=== PATIENT | male | born 1960 | race Caucasian/White ===

== ENCOUNTER → 2017-09-14 | Day surgery (SDC) | payer OTHER ==
[2017-09-01 07:36] VITALS: Ht 170.2 cm; Wt 75.9 kg
[~2017-09-14] VITALS: Ht 170.2 cm; Wt 75.9 kg
[~2017-09-14] MED LIST: ACETAMINOPHEN 650 MG SUPP PR PRN; ASPCH81X PO; ATOR-24 PO; ATROPINE SULFATE 0.1 MG/ML 5ML SYR IV PRN; BUPIVACAINE/EPINEPHRINE 0.5% MPF 1:200,000 30 ML VIAL ONE; CEFAZOLIN 2000MG IV PUSH 15 ML IV SCH; COEN100C7 PO; DEXAMETHASONE SOD INJ 4 MG/ML VIAL ONE; EpHEDrine SULFATE 50MG/5ML SYR ONE; EpHEDrine SULFATE INJ 50 MG/ML AMP IV PRN; FENTANYL CITRATE INJ 50 MCG/1 ML 2 ML VIAL ONE; HYDROCODONE/ACETAMIN 5/325MG TAB PO PRN; HYDROmorphone INJ 0.5 MG/0.5 ML SYR IV PRN; LACTATED RINGER'S 1000ML 1,000 ML IV SCH; LIDOCAINE HCL 2% 2 ML VIAL (20MG/ML) ONE; MIDAZOLAM HCL 1 MG/ML 2ML VIAL ONE; ONDANSETRON INJ 2 MG/ML 2 ML VIAL IV PRN; ONDANSETRON INJ 2 MG/ML 2 ML VIAL ONE; OXYC-57 PO; PROPOFOL IV EMULSION 10 MG/ML 20 ML VIAL ONE; SODIUM CHLORIDE 0.9% 1000ML 1,000 ML IV SCH; TAMS0.4C38 PO
--- NOTE | 2017-09-14 10:43 | Discharge Instructions-SurgCtr ---
Discharge Instructions Date of Service September 14, 2017. Visit Reason for Visit: Right Inguinal Hernia Discharge Discharge Diagnosis / Problem: right inguinal hernia Discharge Goals Goal(s): Decrease discomfort, Improve function, Prevent Disease Progression Activity Recommendations Activity Limitations: as noted below Lifting Limitations: no more than 10 pounds, until after follow-up appointment Exercise/Sports Limitations: until after follow-up appointment May Resume Sexual Activity: after follow-up appointment Shower/Bathe: tomorrow Anesthesia . Post Anesthesia Instructions: If you have had General Anesthesia or IV Sedation: * Do not drive today. * Resume driving when surgeon permits. * Do not make important decisions or sign legal documents today. * Call surgeon for: 1. Temperature elevations greater than 101 degrees F. 2. Uncontrollable pain. 3. Excessive bleeding. 4. Persistent nausea and vomiting. 5. Medication intolerance (nausea, vomiting or rash). * For nausea and vomiting use only clear liquids such as: tea, soda, bouillon until nausea subsides, then gradually increase diet as tolerated. * If you have any concerns or questions, call your surgeon's office. If physician is unavailable and it is an emergency, call 911 or go to the nearest emergency room. . Instructions / Follow-Up Instructions / Follow-Up call [phone] for a follow up appointment or if any concerns/questions. Diet Recommendations Home Diet: resume previous diet Procedures Procedures Performed: open inguinal hernia repair with mesh Pending Studies Studies pending at discharge: no Medical Emergencies . Who to Call and When: Medical Emergencies: If at any time you feel your situation is an emergency, please call 911 immediately. . Non-Emergent Contact Non-Emergency issues call your: Primary Care Provider, Surgeon Call Non-Emergent contact if: temperature is above 101, wound has increased drainage, wound has increased redness, wound has increased pain . . "Provider Documentation" section prepared by Leonard Lynch. .
--- NOTE | 2017-09-14 12:18 | History & Physical Bridge Note ---
H&P Re-Evaluation Bridge Note: I have examined the patient, reviewed the History & Physical and in the interval since the performance of the History & Physical I have noted the following changes of clinical significance: No changes noted. right inguinal hernia
--- NOTE | 2017-09-14 13:55 | [facility] Post Operative Brief Note ---
Immediate Operative Summary Operative Date September 14, 2017. Pre-Operative Diagnosis Right inguinal hernia Post-Operative Diagnosis direct and indirect [facility] Procedure(s) Performed Right Inguinal Hernia Open Repair With plug and patch Mesh Surgeon Form Block Maker Surgeon(s) Willard FERGUSON Estimated Blood Loss 10ML Findings Consistent with Post-Op Diagnosis Specimens None Anesthesia Type General
--- NOTE | 2017-09-14 14:23 | [facility] Operative Report ---
Operative Report Operative Date September 14, 2017. Pre-Operative Diagnosis Right inguinal hernia Post-Operative Diagnosis direct and indirect [facility] Procedure(s) Performed Right Inguinal Hernia Open Repair With plug and patch Mesh Surgeon Computer Field Technician Surgeon(s) Willard FERGUSON Estimated Blood Loss 10ML Specimens None Anesthesia Type General Complication(s) none Description of Procedure After informed consent was obtained the patient was taken the operating room and placed in supine position. After successful placement of the laryngeal mask airway the groin was shaved and sterilely prepped and draped in usual fashion. An inguinal incision was made with a 15 blade scalpel and carried down through the soft tissue using electrocautery. The external oblique aponeurosis was skeletonized. A fresh blade was used to make an incision and then Metzenbaum scissors were used to extend this distally through the external ring as well as for several centimeters proximally. Once in the inguinal canal I used blunt finger dissection to free up the cord and cord structures. I was able to gently tease the cord off of the pubic bone and placed a Asif drain around it. There was a large direct hernia that was easily reducible. We inspected the cord and cord structures using blunt dissection with small amounts of electrocautery. Eventually we were able to identify a small hernia sac. We dissected this back to its neck and then dunked it back into the abdominal cavity. It was able to stay self reduced. We then thoroughly irrigated the wound. I decided to use a plug and pathc polypropylene mesh. I first placed the plug into the direct defect which was a discrete defect. I secured at the surrounding musculature as well as the shelving portion of Poupart's ligament with 0 Ethibond. Next I used a polypropylene lara-holed mesh as an onlay. It was secured distally to Feng's ligament, laterally along the shelving portion of Poupart's ligament and medially along the midline musculature. 0 Ethibond was used for the suturing. The "arms" of the mesh were wrapped around behind the cord and cord structures and again secured to underlying muscle. The mesh laid nice and flat and tension-free and did not impinge on the cord structures themselves. We thoroughly irrigated the wound. There was adequate hemostasis. I injected Marcaine around the edges of the mesh for postoperative analgesia. We then closed the external oblique aponeurosis with 2-0 Vicryl in a running fashion. Soft tissue was irrigated and closed in multiple layers using 3-0 Vicryl for the deep layers and 4-0 Monocryl for the skin. Some additional Marcaine was injected around the skin incision. We then used a skin glue as a dressing. The patient was awaken extubated and transferred to recovery in stable condition. My physician's stonecutter assistant was present throughout the entire procedure. he helped prep the patient. Helped with retraction throughout the case to aid my dissection, assisted with wound closure as well as dressing placement. I attest to the content of the Intraoperative Record and any orders documented therein. Any exceptions are noted below. I attest to the content of the Intraoperative Record and any orders documented therein. Any exceptions are noted below.
[2017-09-14 14:44] VITALS: TEMP 36.7
--- NOTE | 2017-09-14 15:18 | Anesthesia Progress Nt - [facility] ---
Anesthesia Post Op Note Date & Time September 14, 2017 at 15:18 Vital Signs Pain Intensity: 4.0 Vital Signs Past 12 Hours Date Time Temp Pulse Resp B/P (MAP) Pulse Ox O2 Delivery O2 Flow Rate FiO2 09/14/17 14:44 36.7 79 20 132/68 (89) 96 Room Air 09/14/17 14:40 125/81 09/14/17 14:40 36.6 98 Room Air 09/14/17 14:39 77 12 09/14/17 14:39 75 12 98 09/14/17 14:35 127/86 09/14/17 14:34 73 13 100 09/14/17 14:34 74 13 09/14/17 14:30 133/80 09/14/17 14:29 72 15 100 09/14/17 14:29 72 15 09/14/17 14:25 124/72 09/14/17 14:24 82 18 09/14/17 14:24 80 18 100 09/14/17 14:20 104/76 09/14/17 14:19 81 16 09/14/17 14:19 81 16 100 09/14/17 14:15 130/76 09/14/17 14:15 132/80 09/14/17 14:14 36.5 83 16 132/80 100 Mask 6 09/14/17 14:14 92 99 09/14/17 14:14 92 09/14/17 11:00 36.8 60 18 105/66 (79) 96 Room Air Notes Mental Status: alert / awake / arousable, participated in evaluation Pt Amnestic to Procedure: Yes Nausea / Vomiting: adequately controlled Pain: adequately controlled Airway Patency, RR, SpO2: stable & adequate BP & HR: stable & adequate Hydration State: stable & adequate Anesthetic Complications: no major complications apparent
[2017-09-14 15:20] VITALS: BP 128/73; PULSE 66; O2SAT 98
== END | disposition home or self-care (01) ==
LOC: X.SURG 10:33
PROVIDERS: ATTEND Surgery
DX: K40.90 Unilateral inguinal hernia, without obstruction or gangrene, not specified as recurrent (principal); J45.909 Unspecified asthma, uncomplicated; E78.00 Pure hypercholesterolemia, unspecified; E66.9 Obesity, unspecified; E78.5 Hyperlipidemia, unspecified; Z82.49 Family history of ischemic heart disease and other diseases of the circulatory system; Z79.82 Long term (current) use of aspirin